=== PATIENT | male | born 1985 | race African-American/Black ===

== ENCOUNTER 2017-05-13 00:32 | Emergency (ER) | payer MEDICAID, SELFPAY ==
[~2017-05-13] VITALS: Ht 185.4 cm; Wt 84.7 kg
[2017-05-13 00:34] VITALS: BP 149/101
[2017-05-13] MEDS ORDERED: LIDOCAINE 1%, 20ML ONE ×2 (03:27→04:06)
[2017-05-13] MEDS ORDERED: LIDOCAINE 1%, 20ML SQ ONE ×2 (03:30)
== END 2017-05-13 05:07 | disposition home or self-care (01) ==
LOC: ED 04:07
DX: L02.512 Cutaneous abscess of left hand (principal); F17.200 Nicotine dependence, unspecified, uncomplicated
CPT/HCPCS: 10061

== ENCOUNTER 2018-07-28 14:56 | Emergency (ER) | payer SELFPAY ==
[~2018-07-28] VITALS: Ht 188 cm; Wt 88.0 kg
--- NOTE | 2018-07-28 15:16 | NUR ---
33 Y/O MALE PRESENTS TO ED WITH C/O LEFT GROIN PAIN AND BODY ACHES. "MY LOWER ABDOMEN AREA HURTS ON MY LEFT SIDE. IT DOESN'T HURT WHEN I LAY DOWN, BUT WHEN I GET UP TO WALK IT STARTS. IT'S BEEN FOR ABOUT TWO DAYS. I STARTED GETTING BODY ACHES YESTERDAY TOO. I DON'T HAVE A FEVER ANYMORE." NO ACUTE DISTRESS NOTED. PT PLACED ON CONT PULSE OX, NIBP. NO C/O N/V/D, TRAUMA, SYNCOPE, CP,SOB.
[2018-07-28] MEDS ORDERED: DIVA500T2 PO (15:20)
[2018-07-28] MEDS ORDERED: OXYcodone/APAP 5/325MG TABLET ONE (15:45)
[2018-07-28] MEDS ORDERED: IBUPROFEN 600 MG TABLET ONE (15:45)
[2018-07-28 15:48] VITALS: BP 106/66
--- NOTE | 2018-07-28 15:49 | NUR ---
PT RESTING ON GURNEY. NO ACUTE DISTRESS NOTED. NO NEEDS REQUESTED AT THIS TIME.
[2018-07-28] MEDS ORDERED: OXYcodone/APAP 5/325MG TABLET PO ONE (16:00)
[2018-07-28] MEDS ORDERED: IBUPROFEN 600 MG TABLET PO ONE (16:00)
--- NOTE | 2018-07-28 16:12 | NUR ---
PT BACK FROM IMAGING.
[2018-07-28] MEDS ORDERED: CEFTRIAXONE 250 MG IM ONE (16:30)
[2018-07-28] MEDS ORDERED: CEFTRIAXONE 250 MG ONE (16:49)
--- NOTE | 2018-07-28 17:16 | NUR ---
LATE ENTRY FOR 1700: MEDICATIONS ADMINISTERED PER EMAR. PT EDUCATED REGARDING [facility] BEING SEND AND HAVING TO STAY UNTIL RESULTED IN CASE MORE ABX ARE NEEDED. PT VERBALIZED UNDERSTANDING. NO ACUTE DISTRESS NOTED.
--- NOTE | 2018-07-28 17:17 | NUR ---
THIS RN WALKED BY ROOM. PT OUT OF ROOM. PT LEFT ED WITH ALL PERSONAL BELONGINGS.
[2018-07-28 17:22] LABS: CULTURE INDICATED? YES; MICROSCOPIC INDICATED
--- NOTE | 2018-07-28 17:22 | NUR ---
PT CALLED REGARDING NEEDING THE RX THAT EDMD WROTE. PT LEFT BEFORE D/C PAPERWORK GIVEN. PT ANSWERED PHONE AND EDUCATED REGARDING NEEDING THE RX. PT STATED "I WILL BE RIGHT BACK IN TO PICK IT UP. I HAD TO LEAVE."
== END 2018-07-28 17:21 | disposition home or self-care (01) ==
LOC: ED 15:23
DX: N45.1 Epididymitis (principal)
CPT/HCPCS: 76870; 81001; 87086; 87491; 87591; 96372; 99284; J0696; 87077

== ENCOUNTER 2018-07-30 05:19 | Emergency (ER) | payer SELFPAY ==
[~2018-07-30] VITALS: Ht 188 cm; Wt 89.4 kg
[~2018-07-30 05:19] MED LIST: DIVA500T2 PO
[2018-07-30 05:20] VITALS: BP 122/74
== END 2018-07-30 05:54 ==
LOC: ED 05:53
DX: N45.1 Epididymitis (principal); F12.129 Cannabis abuse with intoxication, unspecified; Z76.0 Encounter for issue of repeat prescription; F17.210 Nicotine dependence, cigarettes, uncomplicated
CPT/HCPCS: 99283